=== PATIENT | male | born 1985 | race Caucasian/White ===

== ENCOUNTER 2021-10-14 09:36 | Day surgery (SDC) | payer MEDICAID, SELFPAY ==
[2021-10-14] VITALS (14 sets, daily range): BP systolic 84–136; BP diastolic 48–96; PULSE 51–89; RESP 12–18; TEMP 36.2–36.9; O2SAT 95–100; BMI 23.1
--- NOTE | 2021-10-14 09:50 | PC.NURSE ---
WENT IN TO START IV , PT REFUSED SAID HE WANTED TO WAIT HE REALLY JUST NEEDS TO GET BACK TO WORK
--- NOTE | 2021-10-14 09:53 | PC.NURSE ---
ANA JACOBS at
--- NOTE | 2021-10-14 10:04 | HMH.EDGENADL ---
ED Disposition Clinical Impression: Food bolus obstruction of intestine Disposition: Home, Self-Care Condition on Discharge: Fair Instructions: Upper GI Endoscopy Referrals: Anderson Corado MD [Primary Care Provider] - - Critical Care Critical Care Time: No Attestation: On , the high probability of a clinically significant, sudden or life threatening deterioration of the following system(s) required my full and direct attention, intervention and personal management. The time I documented below is in addition to time spent performing reported procedures but includes the following listed in this critical care notation. Medical Decision Making - Medical Records Medical records reviewed: Yes: I reviewed the patient's medical records. - Daniel Inquiry Pt receiving controlled substance: No Vital Signs: 10/14/21 09:37 10/14/21 10:00 10/14/21 10:20 Temperature 98.4 F Temperature Source Oral Pulse Rate 79 51 L Pulse Rate [Right Radial] 82 Respiratory Rate 16 18 12 Blood Pressure 129/92 H 84/48 L Blood Pressure [Right Arm] 136/96 H Blood Pressure Mean 99 65 Blood Pressure Mean [Right Arm] 109 Blood Pressure Source [Right Arm] Automatic Cuff Blood Pressure Position [Right Arm] Sitting 02 Sat by Pulse Oximetry 97 100 100 Oxygen Delivery Method Room Air Room Air 10/14/21 10:22 10/14/21 10:31 10/14/21 11:00 Temperature Temperature Source Pulse Rate 77 76 81 Pulse Rate [Right Radial] Respiratory Rate 14 14 Blood Pressure 119/80 121/74 105/66 L Blood Pressure [Right Arm] Blood Pressure Mean 89 94 79 Blood Pressure Mean [Right Arm] Blood Pressure Source [Right Arm] Blood Pressure Position [Right Arm] 02 Sat by Pulse Oximetry 100 98 99 Oxygen Delivery Method Room Air Room Air 10/14/21 11:30 Temperature Temperature Source Pulse Rate 74 Pulse Rate [Right Radial] Respiratory Rate 14 Blood Pressure 101/68 L Blood Pressure [Right Arm] Blood Pressure Mean 79 Blood Pressure Mean [Right Arm] Blood Pressure Source [Right Arm] Blood Pressure Position [Right Arm] 02 Sat by Pulse Oximetry 95 Oxygen Delivery Method Room Air Orders (Tests/Meds): ED MEDICATIONS Generic Name Dose Route Start Last Admin Trade Name Freq PRN Reason Stop Dose Admin Nitroglycerin 0.4 mg 10/14/21 09:59 10/14/21 10:15 Nitroglycerin 0.4mg Sl Tablet SL 11/13/21 09:58 0.12 mg Q5MINP PRN Administration Chest Pain Sodium Chloride 10 ml 10/14/21 11:00 Sodium Chloride 0.9% 10ml Vial IV 11/13/21 10:59 NEEDED PRN to Dilute Lorazepam inj Discontinued Medications Generic Name Dose Route Start Last Admin Trade Name Freq PRN Reason Stop Dose Admin Glucagon 1 mg 10/14/21 09:59 10/14/21 10:15 Glucagon 1 Mg/Ml Vial IM 10/14/21 10:00 1 mg ONCE ONE Administration Sodium Chloride 1,000 mls @ 999 mls/hr 10/14/21 10:00 10/14/21 10:15 Sod Chlor 0.9% 1000ml Bag IV 10/14/21 11:00 999 mls/hr .Q1H1M LORA Administration Lorazepam 1 mg 10/14/21 11:00 10/14/21 11:10 Lorazepam 2mg/Ml Vial IV 10/14/21 11:01 1 mg ONCE ONE Administration Ondansetron HCl 4 mg 10/14/21 11:00 10/14/21 11:10 Ondansetron 4mg/2ml Vial IV 10/14/21 11:01 4 mg ONCE ONE Administration - Reevaluation(s) Time: 12:11 Reevaluation #1: On reevaluation, the patient continues to have difficulty tolerating oral intake. He is spitting up saliva and having vomiting. We have tried multiple rounds of medication, however does not appear that the food bolus has dislodged. I did speak with general surgery, Dr. Negron at this time. He recommends EGD. Patient will be transferred up to surgical suite for procedure. Dispo post procedure pending surgery. Medical Decision Narrative: 36-year-old male presented to the emergency department with possible food bolus. Patient is having difficulties tolerating oral intake at this time. Will obtain IV access. Patien
--- NOTE | 2021-10-14 10:15 | PC.NURSE ---
PER DR SANTILLAN 3 NTG SL DISSOLVED IN 20ML OF PRITI MIST FOR FB IN THROAT , PT TOOK THIS WITH NO PROBLEMS , IV STARTED I WAS DRAWING BLOOD PT HAD SYNCOPE , PT BECAME VERY PALE DIAPHROETIC , IV FLUIDS INFUSING , B/P DROPPED TO 90 BUT QUICKLY BOUNCED BACK , PT AWAKE AND ALERT , EKG DONE . PT CALLED TO COME TO ER
--- NOTE | 2021-10-14 10:21 | ECG_ITS ---
APPROVED REPORT Exam: Resting ECG HR:78 bpm ECG Measurements Heart Rate 78 AXES TX 159 P 47 QRSd 120 QRS 65 QT 370 T 81 QTc 403 Conclusion SINUS RHYTHM WITH SINUS ARRHYTHMIA POSSIBLE LEFT ATRIAL ENLARGEMENT [-0.1mV P-WAVE IN V1/V2] MODERATE INTRAVENTRICULAR CONDUCTION DELAY [110+ ms QRS DURATION] BORDERLINE ECG UNCONFIRMED REPORT Electronically signed by : Laureano Prince MD 10/14/2021 14:18:57
--- NOTE | 2021-10-14 11:03 | PC.NURSE ---
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 Called and spoke with Tiffanie in the OR, notified her of consult on pt. States she will notify Dr. Negron but just wants to let us know he will still be scrubbed in for a little while. Updated ER
--- NOTE | 2021-10-14 11:13 | PC.NURSE ---
pt and updated on POC-waiting clean up person back from dr. collazo. pt states no needs at this time.
--- NOTE | 2021-10-14 12:07 | PC.NURSE ---
MD TALKING WITH MD. WIll be to get the pt
--- NOTE | 2021-10-14 12:10 | PC.NURSE ---
Dr. Negron at [facility]
--- NOTE | 2021-10-14 12:18 | PC.NURSE ---
covid swab sent to lab at this time, pt getting in gown and non-skid socks, warm blanket given. at [facility] helping pt. pre-op staff stated they would be down to get pt in approx 15 minutes.
--- NOTE | 2021-10-14 12:19 | HMH.GSHP ---
HPI HPI: Patient is a 36-year-old male. He has a prior history of some occasional dysphagia and symptoms consistent with transient esophageal food impaction which had resolved spontaneously. He has never required intervention. He states that yesterday evening on 10/13/2021 he was eating ribs approximately 8 PM. He had similar sensation consistent with esophageal food impaction. He had been unable to swallow his secretions. His symptoms persisted and did not spontaneously resolve as they usually have in the past and he presented to the emergency department. Symptoms were refractory to noninterventional management. Surgical consultation was obtained. [facility] History I have reviewed the patient's past medical history: Yes *Have you ever received a pneumonia vaccine?: No *Have you received a flu vaccine this season?: No - *Social History Smoking Status: Smoker, status unknown Alcohol Intake: never *Occupational Status:: employed *Travel in the last 8 weeks: None Family Hx:: Non-contributory Review of Systems - Review of Systems Review of systems:: pertinent systems reviewed and negative unless documented below - *Neurologic Denies headache(s) Meds Home Medications Medication Instructions Recorded Confirmed Type No Known Home Medications 10/14/21 10/14/21 History Allergies Allergy/AdvReac Type Severity Reaction Status Date / Time No Known Allergies Allergy Verified 10/14/21 09:51 Exam Vital signs and Labs for Last 24 Hours: Temp Pulse Resp BP Pulse Ox 98.4 F 74 14 101/68 L 95 10/14/21 09:37 10/14/21 11:30 10/14/21 11:30 10/14/21 11:30 10/14/21 11:30 I & O for Last 24 hours: Intake & Output 10/12/21 10/13/21 10/14/21 10/15/21 11:59 11:59 11:59 11:59 Weight 175 lb - Constitutional no acute distress - *Routine HEENT Exam Head: Present: normocephalic Eye: Present: EOMI, PERRL ENT: Present: mucous membranes moist - *Routine Neck Exam Present: supple. Absent: lymphadenopathy - *Routine Respiratory Exam Present: CTA bilaterally - *Routine Cardiovascular Exam Present: RRR - *Routine Abdominal Exam Present: soft, normoactive bowel sounds. Absent: tenderness - *Routine Rectal Exam Rectal:: deferred - *Routine Genitalia Exam Genitalia:: deferred - *Routine Extremities Exam Absent: cyanosis, clubbing, edema - *Routine Skin Exam Present: warm. Absent: rash - *Routine Neurological Exam Present: alert, oriented X3 Assessment and Plan - Assessment and plan all Dx Assessment and Plan for all problems:: Plan for EGD for esophageal obstruction secondary to probable food impaction.
[2021-10-14 12:29] LABS: Coronavirus 19, PCR Not Detected (NotDetected); Influenza A, PCR Not Detected (NotDetected); Influenza B, PCR Not Detected (NotDetected)
--- NOTE | 2021-10-14 12:33 | PC.NURSE ---
report given to etta lemus from surgery at this time, pt transported to pre-op area via wheelchair.
--- NOTE | 2021-10-14 13:07 | P.PN_ITS ---
[facility] Anesthesia Checklist - Patient Identification Patient Identification: Arm Band, Verbal (Name & ) - Structural Data Admitted From: Emergency Dept Planned Operative Procedure/s: EGD Consent for Planned Operative Procedure(s) Verified: Yes Verified Documents: Surgical Consent - NPO Status Verified Time NPO: 00:00 - Airway Assessment C-Spine Mobility Assessed: Yes TMJ Mobility Assessed: Yes Dentition: Poor Dentition - Neurological Assessment Level of Consciousness: Awake, Alert, Appropriate - Anesthesia Plan Anesthesia Risk discussed: Yes ASA Class: I Anesthesia Type: MAC [facility] History I have reviewed the patient's past medical history: Yes *Have you ever received a pneumonia vaccine?: No *Have you received a flu vaccine this season?: No Anesthesia experience/problems:: none - *Social History Smoking Status: Smoker, status unknown Alcohol Intake: never Substance Use Type: denies use *Occupational Status:: employed *Travel in the last 8 weeks: None Family Hx:: Unable to obtain
--- NOTE | 2021-10-14 13:20 | HMH.SCOPE ---
- Procedure: Date: 10/14/21 Patient Date of :: 1985 Procedure Performed:: Esophagogastroduodenoscopy with retrieval of food bolus for esophageal food impaction Indications:: Patient is a 36-year-old male. He has a prior history of some occasional dysphagia and symptoms consistent with transient esophageal food impaction which had resolved spontaneously. He has never required intervention. He states that yesterday evening on 10/13/2021 he was eating ribs approximately 8 PM. He had similar sensation consistent with esophageal food impaction. He had been unable to swallow his secretions. His symptoms persisted and did not spontaneously resolve as they usually have in the past and he presented to the emergency department. Symptoms were refractory to noninterventional management. Surgical consultation was obtained. Performing Provider:: Emir Negron MD Referring Provider:: Erlin Barron Sedation:: MAC sedation Procedure:: Patient was taken to endoscopy procedure room. He was positioned in lateral decubitus position. Adequate intravenous sedation was achieved with anesthesia titration propofol. Olympus endoscope was inserted via the oropharynx. Esophagus was cannulated. Endoscope was advanced to the distal esophagus. At approximately 40 cm there was food impaction/meat bolus encountered. Attempt was made to grasp this with the 3 prong Caesar grasping forceps. This was unsuccessful. Using the Martínez net retrieval device small portions of the meat bolus were able to be retrieved. Endoscope was repeatedly withdrawn and reinserted. After 2 or 3 removals of small portions of the remaining entire food bolus was able to be grasped which was withdrawn with the endoscope. Endoscope was reinserted. Stomach was cannulated and insufflated. Retroflexion revealed no evidence of any appreciable hiatal hernia. Stomach was desufflated and the endoscope was withdrawn. Findings:: Esophageal obstruction secondary to food impaction at the gastroesophageal junction at 40 cm from the incisors Recommendations:: Recommend limited diet with liquid diet for 24 hours then soft diet. I will see him in the office in a couple weeks and likely plan for follow-up EGD as an elective procedure with biopsies and possible dilatation. Complications:: None immediately apparent Estimated blood obtained (mL): 1
== END 2021-10-14 13:55 | disposition home or self-care (01) ==
LOC: ER 12:13 → SDC 12:51
PROVIDERS: Emergency Provider Emergency Medicine; PCP Emergency Medicine; Visit Provider Surgery
PROC: 0DJ08ZZ Inspection of Upper Intestinal Tract, Via Natural or Artificial Opening Endoscopic (ICD-10-PCS; CPT 43235; principal; 2021-10-14 12:30)
DX: T18.128A Food in esophagus causing other injury, initial encounter (principal); R13.10 Dysphagia, unspecified
CPT/HCPCS: 43247; 93005; C9803; J1610; J2405; U0003; U0005

== ENCOUNTER 2023-07-01 13:16 | Emergency (ER) | payer BC, SELFPAY ==
--- NOTE | 2023-07-01 13:15 | ECG_ITS ---
APPROVED REPORT Exam: Resting ECG HR:76 bpm ECG Measurements Heart Rate 76 AXES IN 166 P 49 QRSd 106 QRS 46 QT 358 T 63 QTc 389 Conclusion SINUS RHYTHM NORMAL ECG Electronically signed by : VIOLET SEN, 07/03/2023 06:10:52
[2023-07-01 13:18] VITALS: BP 145/96; PULSE 91; RESP 20; TEMP 36.9; O2SAT 99; BMI 25.0
--- NOTE | 2023-07-01 13:42 | PC.NURSE ---
dr alexandra at bedside
--- NOTE | 2023-07-01 13:48 | ED_ITS ---
Discharge Plan Disposition Patient Disposition: Home, Self-Care Prescriptions Prescriptions: No Action No Known Home Medications Activity Restrictions/Add. Instructions Additional Instructions/Restrictions: At this time it was felt you are safe to be discharged home. If new or worsening symptoms please do not hesitate to return the emergency department. For your abdominal discomfort please follow-up with your family doctor as you are able. Clinical Impressions Clinical Impression: Asymptomatic hypertension Discharge ED Provider: Butch Hope General Adult HPI General Chief complaint: Anxiety Stated complaint: Abdominal pain\anxiety Time Seen by Provider: 07/01/23 13:17 Mode of Arrival: Ambulatory Source of Information: Patient Limitations: No Limitations Description of Symptoms (Recalled from ER Triage Doc. by RN): pt to ed c/o anxiety and left sided chest pain. 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 pt states the pain has resolved on arrival to ED. History of Present Illness HPI narrative: Patient is a 37-year-old male with past medical history of anxiety who presents emergency department for evaluation of elevated blood pressure. Patient became agitated and another individual, was found to have blood pressure significantly over 200 and was transported here for continued evaluation. Patient never had chest pain, no current shortness of breath, no other acute complaints at this time. He has felt as if there is a bubble in his left upper quadrant since he took 2 courses of antibiotics in November however this is not new. Related Data Home Medications Medication Instructions Recorded Confirmed No Known Home Medications 10/14/21 10/14/21 Allergies Allergy/AdvReac Type Severity Reaction Status Date / Time No Known Allergies Allergy Verified 10/14/21 09:51 [facility] Disclaimer: The information contained in this section may have been updated after the patient was seen, as this information can be updated by other users. Social History Smoking Status: Never smoker alcohol intake: never substance use type: denies use current occupational status: employed Travel in the last 8 weeks: None ROS Obtained: Yes Systems reviewed as appropriate & no additional complaints except as documented Physical Exam General General appearance: alert and in no apparent distress Head Head exam: atraumatic and normocephalic Eye Eye exam: Present PERRL and EOMI ENT ENT exam: Present mucous membranes moist Neck Neck exam: Present normal inspection Chest Chest inspection: Present normal inspection and symmetric chest wall rise Respiratory Respiratory exam: Absent respiratory distress Cardiovascular Cardiovascular exam: Present regular rate and normal rhythm Abdominal Exam Abdominal exam: Present soft; Absent tenderness Extremities Exam Extremities exam: Present normal inspection Neurological Exam Neurological exam: Present alert; Absent motor sensory deficit Psychiatric Psychiatric exam: Present normal affect Skin Skin exam: Present warm and dry Medical Decision Making Daniel Inquiry Pt receiving controlled substance: No Vital Signs: 07/01/23 13:18 Temperature 98.4 F Temperature Source Oral Pulse Rate [Left Radial] 91 H Respiratory Rate 20 Blood Pressure [Right Arm] 145/96 H Blood Pressure Mean [Right Arm] 112 02 Sat by Pulse Oximetry 99 Oxygen Delivery Method Room Air ECG Data Tracing #1: Independently interpreted by me, rate is 76, rhythm is regular, axis is normal, no ST elevation in anatomical contiguous leads, QTc 389 Medical Decision Narrative: In summary patient is a 37-year-old male past medical history described above who presents emergency department for evaluation of asymptomatic hypertension. Patient is hemodynamically stable nontoxic-appearing upon arrival, afebrile, blood pressure 145/96. Patient's bubble feeling in his abdomen is chronic and will need to be worked up on an outpatient basis, he has a benign abdominal exam that does not warrant emergent workup at this time. Patient has no chest pain, no acute neurologic symptoms or other findings on physical exam that would warrant investigation. Given the patient has asymptomatic hypertension he is appropriate for discharge at this time was given return precautions and will follow-up with his family doctor. Critical Care Critical Care Time Critical Care Time: No
[2023-07-01 13:56] VITALS: BP 145/96; PULSE 91; RESP 20; TEMP 36.9; O2SAT 99
== END 2023-07-01 13:57 | disposition home or self-care (01) ==
PROVIDERS: Emergency Provider Emergency Medicine; PCP Emergency Medicine
DX: R03.0 Elevated blood-pressure reading, without diagnosis of hypertension (principal); F41.9 Anxiety disorder, unspecified
CPT/HCPCS: 93005; 99283